=== PATIENT | male | born 1990 | race Caucasian/White ===

== ENCOUNTER 2017-08-04 03:36 | Emergency (ER) | payer OTHER ==
--- NOTE | 2017-08-06 20:12 | EKG ---
Test Reason : Blood Pressure : / mmHG Vent. Rate : 127 BPM Atrial Rate : 127 BPM P-R Int : 148 ms QRS Dur : 094 ms QT Int : 302 ms P-R-T Axes : 047 066 054 degrees QTc Int : 438 ms Sinus tachycardia Possible Left atrial enlargement Borderline ECG Confirmed by JENNYFER DAY D.O. ([id number]), pictures editor FLOR PEREZ ([id number]) on 08/06/2017 8:12:06 PM Referred By: BARB Confirmed By:JENNYFER DAY D.O.
== END 2017-08-04 11:13 | disposition home or self-care (01) ==
LOC: ERS 03:36
DX: F10.129 Alcohol abuse with intoxication, unspecified (principal); F32.9 Major depressive disorder, single episode, unspecified; Z79.899 Other long term (current) drug therapy
CPT/HCPCS: 93005; 99284